=== PATIENT | male | born 1995 | race Caucasian/White ===

== ENCOUNTER 2018-03-17 03:07 | Emergency (ER) | payer OTHER ==
[2018-03-17 03:20] VITALS: BP 124/75
== END 2018-03-17 04:11 | disposition left against medical advice (07) ==
LOC: ED 03:07
DX: Z53.21 Procedure and treatment not carried out due to patient leaving prior to being seen by health care provider (principal)
CPT/HCPCS: 99282

== ENCOUNTER 2018-06-07 04:21 | Emergency (ER) | payer OTHER ==
[2018-06-07 04:53] LABS: BASOPHILS # (AUTO) 0.2 10^3/uL (0.0-0.1); BASOPHILS % (AUTO) 2.3 %; EOSINOPHILS # (AUTO) 0.2 10^3/uL (0.0-0.7); EOSINOPHILS % (AUTO) 1.9 %; HGB - HEMOGLOBIN 15.8 g/dL (14.0-18.0); LYMPHOCYTES # (AUTO) 1.7 10^3/uL (1.5-3.5); LYMPHOCYTES % (AUTO) 18.8 %; MEAN CORPUSCULAR HEMOGLOBIN 30.6 pg (27.0-31.0); MEAN CORPUSCULAR HGB CONC 35.7 g/dL (32.0-36.0); MEAN CORPUSCULAR VOLUME 85.8 fL (80.0-94.0); MONOCYTES # (AUTO) 0.7 10^3/uL (0.0-1.0); MONOCYTES % (AUTO) 7.5 %; NEUTROPHILS # (AUTO) 6.4 10^3/uL (1.5-6.6); NEUTROPHILS % (AUTO) 69.5 %; PLT - PLATELET COUNT 243 10^3/uL (130-450); RED BLOOD COUNT 5.17 10^6/uL (4.70-6.10); RED CELL DISTRIBUTION WIDTH 13.4 % (12.0-15.0); WHITE BLOOD COUNT 9.2 x10^3/uL (4.8-10.8)
[2018-06-07 04:56] LABS: MUDS CUTOFF CONCENTRATIONS CUTOFF CONC BELOW:
[2018-06-07 05:03] LABS: CALCIUM 9.6 mg/dL (8.5-10.3); CREATININE 0.9 mg/dL (0.6-1.2)
[2018-06-07 05:08] LABS: AMPHETAMINE SCREEN,URINE NEGATIVE (NEGATIVE); BENZODIAZEPINES SCREEN, URINE NEGATIVE (NEGATIVE); COCAINE SCREEN URINE NEGATIVE (NEGATIVE); METHADONE SCREEN, URINE NEGATIVE (NEGATIVE); METHAMPHETAMINES SCREEN, URINE NEGATIVE (NEGATIVE); OPIATE SCREEN, URINE NEGATIVE (NEGATIVE); OXYCODONE SCREEN, URINE NEGATIVE (NEGATIVE); PROPOXYPHENE SCREEN, URINE NEGATIVE (NEGATIVE); TRICYCLIC ANTIDEPRESSANT,URINE NEGATIVE (NEGATIVE)
--- NOTE | 2018-06-07 05:10 | ED Physician Documentation ---
PD HPI MHE - Stated complaint Stated Complaint: ETOH/SI - Chief complaint Chief Complaint: MHE - History obtained from History obtained from: Patient - History of Present Illness Primary symptom: Suicidal ideation (he has been depressed with suicidal ideation and this was more intense the past few days. States he has been cuting himself on thighs (not deep) and this evening had tied a cord up to the light fixture and considered hanging himself, but then stopped and called 911. EMS brought him here. He had been drinking lightly this evening. Denies any drug use or overdose.) Timing - onset: How many days ago (few days worse suicidal ideation), How many months ago (has been feeling depressed just the past 1-2 months.) Contributing factors: Work. No: Substance abuse - ETOH, Substance abuse - drugs Similar symptoms before: Has not had sx before (just the past couple of months) Recently seen: Clinic (has had counseling the past month, and was Rx Celexa starting a month ago) Review of Systems Constitutional: denies: Fever Nose: denies: Rhinorrhea / runny nose, Congestion Throat: denies: Sore throat Respiratory: denies: Cough GI: denies: Abdominal Pain, Vomiting, Diarrhea Skin: denies: Rash, Lesions Neurologic: denies: Altered mental status, Headache Psychiatric: reports: Depressed, Suicidal, Insomnia. denies: Delusions, Anxiety PD PAST MEDICAL HISTORY - Past Medical History Past Medical History: Yes Cardiovascular: None Respiratory: None Neuro: None Endocrine/Autoimmune: None GI: None : None HEENT: None Psych: Anxiety Musculoskeletal: None Derm: None - Past Surgical History Past Surgical History: No - Present Medications Home Medications: Ambulatory Orders Medication Instructions Recorded Confirmed Sertraline [Zoloft] 1 tab PO DAILY 06/07/18 06/07/18 - Allergies Allergies/Adverse Reactions: Allergies Allergy/AdvReac Type Severity Reaction Status Date / Time No Known Drug Allergies Allergy Verified 06/07/18 05:05 - Living Situation Living Situation: reports: Alone Living Arrangement: reports: At home ([facility] - Social History Does the pt smoke?: Yes Smoking Status: Current every day smoker Does the pt drink ETOH?: Yes Does the pt have substance abuse?: No - Family History Family history: reports: Other (depression) - Immunizations Immunizations are current?: Yes - POLST Patient has POLST: No PD ED PE NORMAL - Vitals Vital signs reviewed: Yes - General General: Alert and oriented X 3, No acute distress, Well developed/nourished - HEENT HEENT: Pharynx benign - Neck Neck: Supple, no meningeal sign, No adenopathy - Cardiac Cardiac: RRR, No murmur - Respiratory Respiratory: Clear bilaterally - Derm Derm: Normal color, Warm and dry - Extremities Extremities: Other (superficial lacs on thighs.) - Neuro Neuro: Alert and oriented X 3, No motor deficit, Normal speech Results - Vitals Vitals: Vital Signs - 24 hr 06/07/18 06/07/18 04:21 06:18 Temperature 36.5 C 36.5 C Heart Rate 81 71 Respiratory 18 16 Rate Blood Pressure 136/77 H 124/82 H O2 Saturation 98 97 Oxygen O2 Source Room air - Labs Labs: Laboratory Tests 06/07/18 06/07/18 06/07/18 04:15 04:15 04:25 WBC 9.2 RBC 5.17 Hgb 15.8 Hct 44.4 MCV 85.8 MCH 30.6 MCHC 35.7 RDW 13.4 Plt Count 243 MPV 8.0 Neut # (Auto) 6.4 Lymph # (Auto) 1.7 [place] # (Auto) 0.7 Eos # (Auto) 0.2 Baso # (Auto) 0.2 H Absolute Nucleated RBC 0.00 Nucleated RBC % 0.0 Sodium 139 Potassium 3.7 Chloride 104 Carbon Dioxide 23 Anion Gap 12.0 BUN 12 Creatinine 0.9 Estimated GFR (MDRD) 107 Glucose 102 H Calcium 9.6 TSH Urine Color Urine Clarity Urine pH Ur Specific [place] Urine Protein Urine Glucose (UA) Urine Ketones Urine Occult Blood Urine Nitrite Urine Bilirubin Urine Urobilinogen Ur Leukocyte Esterase Ur Microscopic Review Urine Culture Comments Salicylates Urine Opiates Screen NEGATIVE Ur Oxycodone Screen NEGATIVE Urine Methadone Screen NEGATIVE Ur Propoxyphene Screen NEGATIVE Acetaminophen Ur Barbiturates Screen NEGATIVE Ur Tricyclics Screen NEGATIVE Ur Phencyclidine Scrn NEGATIVE Ur Amphetamine Screen NEGATIVE U Methamphetamines Scrn NEGATIVE U Benzodiazepines Scrn NEGATIVE Urine Cocaine Screen NEGATIVE U Cannabinoids Screen NEGATIVE Ethyl Alcohol 90.1 06/07/18 06/07/18 06/07/18 04:25 04:40 04:40 WBC RBC Hgb Hct MCV MCH MCHC RDW Plt Count MPV Neut # (Auto) Lymph # (Auto) [place] # (Auto) Eos # (Auto) Baso # (Auto) Absolute Nucleated RBC Nucleated RBC % Sodium Potassium Chloride Carbon Dioxide Anion Gap BUN Creatinine Estimated GFR (MDRD) Glucose Calcium TSH 2.44 Urine Color YELLOW Urine Clarity CLEAR Urine pH 6.0 Ur Specific [place] <=1.005 Urine Protein NEGATIVE Urine Glucose (UA) NEGATIVE Urine Ketones NEGATIVE Urine Occult Blood NEGATIVE Urine Nitrite NEGATIVE Urine Bilirubin NEGATIVE Urine Urobilinogen 0.2 (NORMAL) Ur Leukocyte Esterase NEGATIVE Ur Microscopic Review NOT INDICATED Urine Culture Comments NOT INDICATED Salicylates < 6.0 Urine Opiates Screen Ur Oxycodone Screen Urine Methadone Screen Ur Propoxyphene Screen Acetaminophen < 10 L Ur Barbiturates Screen Ur Tricyclics Screen Ur Phencyclidine Scrn Ur Amphetamine Screen U Methamphetamines Scrn U Benzodiazepines Scrn Urine Cocaine Screen U Cannabinoids Screen Ethyl Alcohol PD MEDICAL DECISION MAKING - ED course Complexity details: reviewed results, re-evaluated patient (he still verbally contracts not to hurt himself. His Command is here and [place] and will arrange acute counseling for him as well. I feel comfortable with this. ), considered differential (he says he is not suicidal now. He says he won't drink alcohol. I could consider a safety watch with command, versus hospitalization. See what Command is able to set up. ), d/ w patient, other (talked with his command officer, who was called and arrived to the ER. ) - Sepsis Event Vital Signs: Vital Signs - 24 hr 06/07/18 06/07/18 04:21 06:18 Temperature 36.5 C 36.5 C Heart Rate 81 71 Respiratory 18 16 Rate Blood Pressure 136/77 H 124/82 H O2 Saturation 98 97 Oxygen O2 Source Room air Departure - Departure Disposition: 01 Home, Self Care Clinical Impression: Suicidal behavior without attempted self-injury Depression Qualifiers: Depression Type: unspecified Qualified Code(s): F32.9 - Major depressive disorder, single episode, unspecified Condition: Stable Record reviewed to determine appropriate education?: Yes Instructions: ED Depression Follow-Up: FLACO Deshpande [Provider Group] Comments: Continue your current medications. Remain safe and allow supervision. No alcohol use. Follow-up with your counselor in the next couple of days when they are available. Return if needed. Call the crisis line if needed.
[2018-06-07 05:18] LABS: BILIRUBIN,URINE NEGATIVE (NEGATIVE); GLUCOSE, URINE (UA) NEGATIVE (NEGATIVE); KETONES,URINE (UA) NEGATIVE (NEGATIVE); LEUKOCYTE ESTERASE, URINE NEGATIVE (NEGATIVE); NITRITE,URINE NEGATIVE (NEGATIVE); OCCULT BLOOD,URINE NEGATIVE (NEGATIVE); PROTEIN,URINE NEGATIVE (NEGATIVE); UROBILINOGEN,URINE 0.2 (NORMAL) E.U./dL (NORMAL)
[2018-06-07 05:31] LABS: CLARITY,URINE CLEAR (CLEAR)
[2018-06-07 05:37] LABS: SALICYLATE < 6.0 mg/dL
[2018-06-07 05:38] LABS: ACETAMINOPHEN < 10 ug/mL (10-30)
[2018-06-07 07:55] VITALS: BP 116/57
== END 2018-06-07 08:03 | disposition home or self-care (01) ==
LOC: EDUNIT# → ED 04:21
DX: F32.9 Major depressive disorder, single episode, unspecified (principal); S70.922A Unspecified superficial injury of left thigh, initial encounter; S70.921A Unspecified superficial injury of right thigh, initial encounter; X78.1XXA Intentional self-harm by knife, initial encounter
CPT/HCPCS: 36415; 80048; 80306; 80307; 80320; 80329; 81001; 81003; 84443; 85025; 86780; 87086; 99283

== ENCOUNTER 2018-07-01 22:43 | Emergency (ER) | payer OTHER ==
[2018-07-01 22:59] LABS: MUDS CUTOFF CONCENTRATIONS CUTOFF CONC BELOW:
[2018-07-01 23:03] LABS: BILIRUBIN,URINE NEGATIVE (NEGATIVE); GLUCOSE, URINE (UA) NEGATIVE (NEGATIVE); KETONES,URINE (UA) NEGATIVE (NEGATIVE); LEUKOCYTE ESTERASE, URINE NEGATIVE (NEGATIVE); NITRITE,URINE NEGATIVE (NEGATIVE); OCCULT BLOOD,URINE NEGATIVE (NEGATIVE); PROTEIN,URINE NEGATIVE (NEGATIVE); UROBILINOGEN,URINE 0.2 (NORMAL) E.U./dL (NORMAL)
[2018-07-01 23:04] LABS: CLARITY,URINE CLEAR (CLEAR)
[2018-07-01 23:19] LABS: BASOPHILS # (AUTO) 0.1 10^3/uL (0.0-0.1); BASOPHILS % (AUTO) 1.2 %; EOSINOPHILS # (AUTO) 0.1 10^3/uL (0.0-0.7); EOSINOPHILS % (AUTO) 1.6 %; LYMPHOCYTES # (AUTO) 2.6 10^3/uL (1.5-3.5); LYMPHOCYTES % (AUTO) 28.3 %; MEAN CORPUSCULAR HEMOGLOBIN 29.5 pg (27.0-31.0); MEAN CORPUSCULAR HGB CONC 34.7 g/dL (32.0-36.0); MEAN CORPUSCULAR VOLUME 85.2 fL (80.0-94.0); MEAN PLATELET VOLUME 8.1 fL (7.4-11.4); MONOCYTES # (AUTO) 0.7 10^3/uL (0.0-1.0); MONOCYTES % (AUTO) 7.5 %; NEUTROPHILS # (AUTO) 5.6 10^3/uL (1.5-6.6); NEUTROPHILS % (AUTO) 61.4 %; PLT - PLATELET COUNT 249 10^3/uL (130-450); RED BLOOD COUNT 5.42 10^6/uL (4.70-6.10); RED CELL DISTRIBUTION WIDTH 13.3 % (12.0-15.0)
[2018-07-01 23:19] LABS: AMPHETAMINE SCREEN,URINE NEGATIVE (NEGATIVE); BENZODIAZEPINES SCREEN, URINE NEGATIVE (NEGATIVE); COCAINE SCREEN URINE NEGATIVE (NEGATIVE); METHADONE SCREEN, URINE NEGATIVE (NEGATIVE); METHAMPHETAMINES SCREEN, URINE NEGATIVE (NEGATIVE); OPIATE SCREEN, URINE NEGATIVE (NEGATIVE); OXYCODONE SCREEN, URINE NEGATIVE (NEGATIVE); PROPOXYPHENE SCREEN, URINE NEGATIVE (NEGATIVE); TRICYCLIC ANTIDEPRESSANT,URINE NEGATIVE (NEGATIVE)
[2018-07-01 23:26] LABS: ALBUMIN 4.7 g/dL (3.2-5.5); ALBUMIN/GLOBULIN RATIO 1.6 (1.0-2.2); ALKALINE PHOSPHATASE 84 IU/L (42-121); ALT ALANINE AMINOTRANSFERASE 20 IU/L (10-60); AST ASPARTATE AMINOTRANSFERASE 21 IU/L (10-42); BILIRUBIN,TOTAL 0.2 mg/dL (0.2-1.0); BUN - BLOOD UREA NITROGEN 16 mg/dL (6-20); CALCIUM 9.6 mg/dL (8.5-10.3); CARBON DIOXIDE - CO2 26 mmol/L (21-32); CHLORIDE 104 mmol/L (101-111); CREATININE 1.1 mg/dL (0.6-1.2); GFR - MDRD 85 (>89); GLUCOSE 108 mg/dL (70-100); LIPASE 25 U/L (22-51); SALICYLATE < 6.0 mg/dL; SODIUM 141 mmol/L (135-145); TOTAL PROTEIN 7.7 g/dL (6.7-8.2)
[2018-07-01 23:29] LABS: ACETAMINOPHEN < 10 ug/mL (10-30)
--- NOTE | 2018-07-02 00:36 | ED Physician Documentation ---
PD HPI MHE - Stated complaint Stated Complaint: SI - Chief complaint Chief Complaint: MHE - History obtained from History obtained from: Patient, Other (chief) - History of Present Illness Primary symptom: Suicidal ideation, Depression, Medical clearance Timing - onset: How many months ago (5) Contributing factors: Sig other, Work Similar symptoms before: Diagnosis (depression with SI) Recently seen: Admitted - Additional information Additional information: 23-year-old [employer] [place] male with a history of depression and suicidal ideation has again developed suicidal ideation and has contacted his conservation enforcement officer. He has talked to his psychiatrist and he has been referred to the emergency department for medical clearance for admission to [facility]. The patient has a history of depression that started approximately 5 months ago when a girlfriend he had at the time became and without his knowledge had an . He did break up and this is been troubling for him since. He states that the depression has developed after this and the initial event is no longer on his [place]. Despite this he continues to be depressed he is having trouble with sleep, his appetite and his work. He has suicidal thoughts and currently he has intrusion of thoughts and feels that the easiest way for him to do this now would be to purchase [id number] medications and take an overdose. He states that he has failed this previously and now knows the way to make it work right. He states that he does actively have this thought. He does want help and he is come to the emergency department this evening with his command. Review of Systems Constitutional: denies: Fever Eyes: denies: Decreased vision Ears: denies: Ear pain Nose: denies: Rhinorrhea / runny nose, Congestion Throat: denies: Sore throat Cardiac: denies: Chest pain / pressure, Palpitations Respiratory: denies: Dyspnea, Cough GI: reports: Diarrhea. denies: Abdominal Pain, Nausea, Vomiting : denies: Dysuria, Frequency Skin: denies: Rash Musculoskeletal: denies: Neck pain, Back pain, Extremity pain Neurologic: denies: Generalized weakness, Focal weakness, Numbness Psychiatric: reports: Depressed, Suicidal, Anxiety, Insomnia. denies: Homicidal, Hallucinations, Delusions PD PAST MEDICAL HISTORY - Past Medical History Past Medical History: Yes Cardiovascular: None Respiratory: None Neuro: None Endocrine/Autoimmune: None GI: None : None HEENT: None Psych: Depression, Anxiety Musculoskeletal: None Derm: None - Past Surgical History Past Surgical History: No - Present Medications Home Medications: Ambulatory Orders Medication Instructions Recorded Confirmed Sertraline [Zoloft] 1 tab PO DAILY 06/07/18 06/07/18 diphenhydrAMINE [Benadryl] 25 mg PO HS 07/01/18 07/01/18 hydrOXYzine PAMOATE [Vistaril] 25 mg PO 07/01/18 - Allergies Allergies/Adverse Reactions: Allergies Allergy/AdvReac Type Severity Reaction Status Date / Time No Known Drug Allergies Allergy Verified 07/01/18 22:52 - Social History Does the pt smoke?: Yes Smoking Status: Current every day smoker Does the pt drink ETOH?: Yes Does the pt have substance abuse?: No - Immunizations Immunizations are current?: Yes - POLST Patient has POLST: No PD ED PE NORMAL - Vitals Vital signs reviewed: Yes (normal ) - General General: Alert and oriented X 3, No acute distress, Well developed/nourished - HEENT HEENT: Atraumatic, PERRL, EOMI, Ears normal, Moist mucous membranes, Pharynx benign, Dentition benign - Neck Neck: Supple, no meningeal sign, No bony TTP - Cardiac Cardiac: RRR, No murmur - Respiratory Respiratory: No respiratory distress, Clear bilaterally - Abdomen Abdomen: Soft, Non tender - Back Back: No CVA TTP, No spinal TTP - Derm Derm: Normal color, Warm and dry, No rash - Extremities Extremities: No deformity, No edema - Neuro Neuro: Alert and oriented X 3, 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, No motor deficit, No sensory deficit, Normal speech Eye Opening: Spontaneous Motor: Obeys Commands Verbal: Oriented GCS Score: 15 - Psych Psych: Normal mood, Normal affect Results - Vitals Vitals: Vital Signs - 24 hr 07/01/18 22:46 Temperature 36.1 C L Heart Rate 114 H Respiratory 20 Rate Blood Pressure 112/65 O2 Saturation 97 Oxygen O2 Source Room air - Labs Labs: Laboratory Tests 07/01/18 07/01/18 07/01/18 22:55 23:06 23:06 WBC 9.0 RBC 5.42 Hgb 16.0 Hct 46.2 MCV 85.2 MCH 29.5 MCHC 34.7 RDW 13.3 Plt Count 249 MPV 8.1 Neut # (Auto) 5.6 Lymph # (Auto) 2.6 [place] # (Auto) 0.7 Eos # (Auto) 0.1 Baso # (Auto) 0.1 Absolute Nucleated RBC 0.01 Nucleated RBC % 0.1 Sodium 141 Potassium 3.9 Chloride 104 Carbon Dioxide 26 Anion Gap 11.0 BUN 16 Creatinine 1.1 Estimated GFR (MDRD) 85 L Glucose 108 H Calcium 9.6 Total Bilirubin 0.2 AST 21 ALT 20 Alkaline Phosphatase 84 Total Protein 7.7 Albumin 4.7 Globulin 3.0 Albumin/Globulin Ratio 1.6 Lipase 25 Urine Color YELLOW Urine Clarity CLEAR Urine pH 6.0 Ur Specific [place] 1.025 Urine Protein NEGATIVE Urine Glucose (UA) NEGATIVE Urine Ketones NEGATIVE Urine Occult Blood NEGATIVE Urine Nitrite NEGATIVE Urine Bilirubin NEGATIVE Urine Urobilinogen 0.2 (NORMAL) Ur Leukocyte Esterase NEGATIVE Ur Microscopic Review NOT INDICATED Urine Culture Comments NOT INDICATED Salicylates < 6.0 Urine Opiates Screen NEGATIVE Ur Oxycodone Screen NEGATIVE Urine Methadone Screen NEGATIVE Ur Propoxyphene Screen NEGATIVE Acetaminophen < 10 L Ur Barbiturates Screen NEGATIVE Ur Tricyclics Screen NEGATIVE Ur Phencyclidine Scrn NEGATIVE Ur Amphetamine Screen NEGATIVE U Methamphetamines Scrn NEGATIVE U Benzodiazepines Scrn NEGATIVE Urine Cocaine Screen NEGATIVE U Cannabinoids Screen NEGATIVE Ethyl Alcohol 96.8 PD MEDICAL DECISION MAKING - ED course Complexity details: reviewed old records, reviewed results, re-evaluated patient, considered differential, d/w patient - Sepsis Event Vital Signs: Vital Signs - 24 hr 07/01/18 22:46 Temperature 36.1 C L Heart Rate 114 H Respiratory 20 Rate Blood Pressure 112/65 O2 Saturation 97 Oxygen O2 Source Room air Departure - Departure Disposition: 65 Psych Hosp/Unit DC/Xfer Clinical Impression: Suicidal behavior without attempted self-injury Depression Qualifiers: Depression Type: reactive depression Qualified Code(s): F32.9 - Major depressive disorder, single episode, unspecified
[2018-07-02 08:35] VITALS: BP 125/89
== END 2018-07-02 08:35 ==
LOC: ED 22:43
DX: R45.851 Suicidal ideations (principal); F32.9 Major depressive disorder, single episode, unspecified
CPT/HCPCS: 36415; 80053; 80306; 80307; 80320; 80329; 81001; 81003; 83690; 85025; 87086; 99284